=== PATIENT | female | born 1955 | race Caucasian/White ===

== ENCOUNTER 2018-10-05 07:51 | Day surgery (SDC) | payer MEDICARE ==
--- NOTE | 2018-10-05 08:45 | CP.SDSHP ---
Same Day Surgery H & P - History Proposed Procedure: colonoscopy - Previous Medical/Surgical History Cardiac: Hypertension Endocrine/Metabolic: Diabetes Previous Surgical History: hysterectomy - Date & Time Date: 10/05/18 Time: 08:44 Short Stay Discharge - Short Stay Discharge Admitting Diagnosis/Reason for Visit: ENCOUNTER FOR SCREENING FOR MALIGNANT NEOPLASM OF Disposition: HOME/ ROUTINE
[2018-10-05 08:47] VITALS: BMI 29.0
[2018-10-05] MEDS ORDERED: Lactated Ringer's 500 ML IV SCH (09:30)
[2018-10-05 10:47] VITALS: TEMP 99.3
[2018-10-05 11:12] VITALS: BP 115/67; PULSE 56; RESP 18; O2SAT 99
== END 2018-10-05 11:33 | disposition home or self-care (01) ==
LOC: C.ENDO 07:51
PROVIDERS: ATTEND Colon & Rectal Surgery
DX: Z12.11 Encounter for screening for malignant neoplasm of colon (principal); D12.3 Benign neoplasm of transverse colon; K64.8 Other hemorrhoids

== ENCOUNTER → 2018-12-18 | Outpatient (CLI) | payer MEDICARE | LOC: C.DEXAIC 10:07 | DX: M81.0 Age-related osteoporosis without current pathological fracture (principal) ==